=== PATIENT | male | born 1985 | race Caucasian/White ===

== ENCOUNTER 2017-01-03 18:55 | Emergency (ER) | payer OTHER ==
[~2017-01-03] VITALS: Ht 182.9 cm; Wt 77.1 kg
[~2017-01-03 18:55] MED LIST: CLON0.5T4 PO; DEXT5TAB15 PO; LAMO25TA PO
--- NOTE | 2017-01-03 19:24 | NUR ---
Pt to room c/o right eye redness, itching and discharge. Pt resting in position of comfort for self. Awaiting further eval.
--- NOTE | 2017-01-03 20:20 | NUR ---
Pt seen by MD. Pt stable for discharge per MD.Pt given ACI. Pt verbalized understanding of dc instructions. Pt ambulated out of er with steady gait.
[2017-01-03 20:34] VITALS: BP 142/75
== END 2017-01-03 20:20 | disposition home or self-care (01) ==
LOC: ER 18:56
DX: B30.9 Viral conjunctivitis, unspecified (principal); F41.9 Anxiety disorder, unspecified
CPT/HCPCS: A4663

== ENCOUNTER 2017-10-10 19:51 | Emergency (ER) | payer OTHER ==
[~2017-10-10] VITALS: Ht 182.9 cm; Wt 77.1 kg
[~2017-10-10 19:51] MED LIST changes: -DEXT5TAB15 PO
--- NOTE | 2017-10-10 20:00 | NUR ---
Dr. Asencio at bedside for MSE.
[2017-10-10] MEDS ORDERED: HYDROCODONE/APAP 5-325MG TABLET PO ONE (20:15)
--- NOTE | 2017-10-10 20:15 | NUR ---
Xray at bedside.
[2017-10-10] MEDS ORDERED: HYDROCODONE/APAP 5-325MG TABLET ONE (20:24)
[2017-10-10 21:01] VITALS: BP 149/86
== END 2017-10-10 20:45 | disposition home or self-care (01) ==
LOC: ER 19:53
DX: S20.212A Contusion of left front wall of thorax, initial encounter (principal); S60.221A Contusion of right hand, initial encounter; F17.210 Nicotine dependence, cigarettes, uncomplicated; Z79.899 Other long term (current) drug therapy; W17.89XA Other fall from one level to another, initial encounter; Y93.89 Activity, other specified; Y92.89 Other specified places as the place of occurrence of the external cause; Y99.8 Other external cause status
CPT/HCPCS: 71101; 73130; 99284; A4663

== ENCOUNTER 2017-10-23 18:23 | Emergency (ER) | payer OTHER ==
[~2017-10-23] VITALS: Ht 182.9 cm; Wt 77.1 kg
--- NOTE | 2017-10-23 19:01 | NUR ---
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
--- NOTE | 2017-10-23 19:13 | NUR ---
Assumed pt care at this time. Pt back from CT scan. Pt resting in bed. No distress noted.
--- NOTE | 2017-10-23 19:25 | NUR ---
KRYSTAL BRANDON at bedside for update.
--- NOTE | 2017-10-23 19:43 | NUR ---
APPLIED SPLINT TO RUE. AWAITING CT SCAN RESULTS
[2017-10-23 20:07] VITALS: BP 112/82
--- NOTE | 2017-10-23 20:07 | NUR ---
Patient discharged to home in stable conditon. Written and verbal after care instructions given. Patient verbalizes understanding of instructions. Patient left ER walking in steady gait. All belongings taken with pt. VSS. No distress noted.
== END 2017-10-23 20:08 | disposition home or self-care (01) ==
LOC: ER 18:27
DX: S62.396A Other fracture of fifth metacarpal bone, right hand, initial encounter for closed fracture (principal); S20.212A Contusion of left front wall of thorax, initial encounter; F17.210 Nicotine dependence, cigarettes, uncomplicated; Z79.899 Other long term (current) drug therapy; W06.XXXA Fall from bed, initial encounter; Y93.89 Activity, other specified; Y92.89 Other specified places as the place of occurrence of the external cause; Y99.8 Other external cause status
CPT/HCPCS: 71250; 73130; 93005; A4663

== ENCOUNTER 2018-08-17 21:22 | Emergency (ER) | payer OTHER ==
[~2018-08-17] VITALS: Ht 182.9 cm; Wt 72.6 kg
[~2018-08-17 21:22] MED LIST changes: +CLON0.5T12 PO; -CLON0.5T4 PO; -LAMO25TA PO; +LAMO25TA10 PO
--- NOTE | 2018-08-17 21:39 | NUR ---
Dr. Muñoz at bedside for MSE.
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
[2018-08-17] MEDS ORDERED: CEFTRIAXONE 1 G VIAL ONE (21:57)
[2018-08-17] MEDS ORDERED: ONDANSETRON ODT 4 MG TAB.RAPDIS ONE (21:58)
[2018-08-17] MEDS ORDERED: HYDROCODONE/APAP 10-325 MG TABLET ONE (21:58)
[2018-08-17] MEDS ORDERED: LIDOCAINE 1%-EPI 1:100,000 20 ML VIAL ONE (21:59)
[2018-08-17] MEDS ORDERED: LIDOCAINE 1%-EPI 1:100,000 20 ML VIAL TP ONE (22:00)
[2018-08-17] MEDS ORDERED: HYDROCODONE/APAP 10-325 MG TABLET PO ONE (22:00)
[2018-08-17] MEDS ORDERED: ONDANSETRON ODT 4 MG TAB.RAPDIS SL ONE (22:00)
[2018-08-17] MEDS ORDERED: SODIUM BICARBONATE 4.2 % (NEUT) 5 ML VIAL TP ONE (22:00)
[2018-08-17] MEDS ORDERED: CEFTRIAXONE 1 G VIAL IM ONE (22:00)
--- NOTE | 2018-08-17 22:46 | NUR ---
Patient discharged to home in stable conditon. Written and verbal after care instructions given. Patient verbalizes understanding of instructions. Patient ambulated out of ER with steady gait, no acute signs of distress, VSS, all belongings taken, to be driven home via private vehicle by family.
[2018-08-17 22:48] VITALS: BP 117/90
== END 2018-08-17 22:48 | disposition home or self-care (01) ==
LOC: ER 21:22
DX: S31.119A Laceration without foreign body of abdominal wall, unspecified quadrant without penetration into peritoneal cavity, initial encounter (principal); S61.511A Laceration without foreign body of right wrist, initial encounter; S61.011A Laceration without foreign body of right thumb without damage to nail, initial encounter; Z71.6 Tobacco abuse counseling; F17.290 Nicotine dependence, other tobacco product, uncomplicated; Z79.899 Other long term (current) drug therapy; W25.XXXA Contact with sharp glass, initial encounter; Y93.89 Activity, other specified; Y92.89 Other specified places as the place of occurrence of the external cause; Y99.8 Other external cause status
CPT/HCPCS: 12002; 73100; 74021; 96372; 99283; 99406; J0696; J3490 ×3; A4217; A4663; Q0162

== ENCOUNTER 2018-10-10 18:41 | Emergency (ER) | payer OTHER ==
[~2018-10-10] VITALS: Ht 182.9 cm; Wt 77.1 kg
--- NOTE | 2018-10-10 19:00 | NUR ---
Pt. ambulated into ED w/ c/o R calf pain x 2 weeks,
--- NOTE | 2018-10-10 19:09 | NUR ---
Received report from nicole RN, assumed care of pt., pt. resting in bed, bed in low position, NAD
--- NOTE | 2018-10-10 19:46 | NUR ---
Radiology called for US of LE
--- NOTE | 2018-10-10 20:20 | NUR ---
US tech. at bedside,
--- NOTE | 2018-10-10 21:31 | NUR ---
Patient discharged to home in stable conditon. Written and verbal after care instructions given. Patient verbalizes understanding of instructions. Pt. d/c per MD order, d/c papers signed, all belongings w/ pt., ID band removed, ambulated off unit w/ steady gait accompanied by female business process architect, CARLYLE
== END 2018-10-10 21:35 | disposition home or self-care (01) ==
LOC: ER 18:42
DX: S80.01XA Contusion of right knee, initial encounter (principal); F17.200 Nicotine dependence, unspecified, uncomplicated; Z79.899 Other long term (current) drug therapy; X58.XXXA Exposure to other specified factors, initial encounter; Y93.89 Activity, other specified; Y92.89 Other specified places as the place of occurrence of the external cause; Y99.8 Other external cause status
CPT/HCPCS: 73700; A4663

== ENCOUNTER 2021-01-31 09:05 | Emergency (ER) | payer OTHER ==
[~2021-01-31] VITALS: Ht 182.9 cm; Wt 81.6 kg
[~2021-01-31 09:05] MED LIST changes: -CLON0.5T12 PO; +CLON0.5T4 PO
[2021-01-31 09:41] LABS: HEMATOCRIT 44.8 % (36.7-47.1); MEAN CORPUSCULAR HEMOGLOBIN 32.1 uug (23.8-33.4); MEAN CORPUSCULAR VOLUME 92.1 fL (73.0-96.2); PLATELET COUNT (AUTO) 174 K/uL (152-348)
[2021-01-31 09:48] LABS: CREATININE 0.9 mg/dL (0.6-1.3); POTASSIUM 3.8 mmol/L (3.5-5.1)
[2021-01-31] MEDS ORDERED: NEBI5TAB8 PO (09:54)
[2021-01-31] MEDS ORDERED: TAMS-3 PO (09:55)
[2021-01-31 10:00] LABS: BILIRUBIN,DIRECT 0.1 mg/dL (0.0-0.2); BILIRUBIN,TOTAL 0.5 mg/dL (0.2-1.0); TOTAL PROTEIN, SERUM 6.6 g/dL (6.4-8.2)
[2021-01-31 14:15] VITALS: BP 121/71
[2021-01-31] MEDS: KETOROLAC TROMETHAMINE 60 MG INJ IM ONE (14:15)
--- NOTE | 2021-01-31 14:15 | NUR ---
Patient discharged to home in stable condition. Written and verbal after care instructions given. Patient verbalizes understanding of instructions. Stressed follow up or return to ER for worsening s/s.
[2021-01-31] MEDS ORDERED: KETOROLAC TROMETHAMINE 60 MG INJ IM ONE (14:20)
== END 2021-01-31 14:16 | disposition home or self-care (01) ==
LOC: ER 09:05
DX: R07.9 Chest pain, unspecified (principal); R94.31 Abnormal electrocardiogram [ECG] [EKG]; F17.210 Nicotine dependence, cigarettes, uncomplicated; F41.9 Anxiety disorder, unspecified; Z79.899 Other long term (current) drug therapy; Z82.49 Family history of ischemic heart disease and other diseases of the circulatory system
CPT/HCPCS: 36415; 71045; 80048; 80076; 83880; 84484 ×2; 85025; 85379; 93005 ×2; 96372; 99285; J1885; 70030-TC; A4663